=== PATIENT | female | born 1995 | race African-American/Black ===

== ENCOUNTER 2017-07-30 10:34 | Emergency (ER) | payer BC, OTHER ==
[2017-07-30] MEDS: ACETAMINOPHEN 500 MG TAB PO (12:16)
[2017-07-30 12:41] LABS: ADD UMIC NO; UR ASCORBIC ACID 40 mg/dL (NEGATIVE); UR BILIRUBIN (Dip) NEGATIVE (NEGATIVE); UR BLOOD (Dip) NEGATIVE (NEGATIVE); UR CLARITY SLIGHTLY CLOUDY (CLEAR); UR COLOR YELLOW (YELLOW); UR GLUCOSE (Dip) 3+ mg/dL (NEGATIVE); UR KETONES (Dip) 2+ mg/dL (NEGATIVE); UR LEUKOCYTE ESTERASE (Dip) NEGATIVE Leu/ul (NEGATIVE); UR MUCUS FEW /HPF (NONE SEEN); UR NITRITE (Dip) NEGATIVE (NEGATIVE); UR RBC 1 /HPF (0-5); UR SPECIFIC GRAVITY (Dip) 1.031 (1.003-1.030); UR SQUAMOUS EPITHELIAL CELL FEW /HPF (FEW); UR TOTAL PROTEIN (Dip) NEGATIVE (NEGATIVE); UR UROBILINOGEN (Dip) NEGATIVE (NEGATIVE); UR WBC 1 /HPF (0-5)
[2017-07-30] MEDS ORDERED: SOD CHLORIDE 0.9% 1,000 ML IV (12:51)
== END 2017-07-30 13:12 | disposition left against medical advice (07) ==
LOC: FTE 10:34
DX: O9A.211 Injury, poisoning and certain other consequences of external causes complicating pregnancy, first trimester (principal); S49.91XA Unspecified injury of right shoulder and upper arm, initial encounter; O24.011 Pre-existing type 1 diabetes mellitus, in pregnancy, first trimester; V49.50XA Passenger injured in collision with unspecified motor vehicles in traffic accident, initial encounter; Z3A.01 Less than 8 weeks gestation of pregnancy
CPT/HCPCS: 76817; 81001; 81003; 82962; 99284-25